=== PATIENT | female | born 1935 | race Caucasian/White ===

== ENCOUNTER → 2016-09-27 | Outpatient (CLI) | payer OTHER ==
[~2016-09-27] MED LIST: ACET325S8 PO; COMBAER INH; DORZ1SOL2 OD; GLUCTAB PO; KCL20 PO; KPHOSO PO; LEVA500T PO; LISI-357 PO; LOVA1TAB47 PO; PARO10TA PO; SODI1 PO
--- NOTE | 2016-10-03 12:21 | RSPPFT ---
DATE OF PROCEDURE: 09/27/16 COMMENTS: VOLUMES DYNAMIC: FVC and FEV1 mildly reduced. STATIC: FRC, RV moderately increased; TLC normal. FLOWS: FEV1% mildly reduced; FEF 25-75 severely reduced. DIFFUSION: Moderately reduced. FLOW VOLUME LOOP: Pattern of variable intrathoracic airways obstruction. IMPRESSION: Moderate obstructive ventilatory defect with reduction in diffusion and significant hyperinflation. There is improvement post-bronchodilator.
== END ==
LOC: HRSP 11:19
PROVIDERS: ATTEND Internal Medicine
DX: J44.9 Chronic obstructive pulmonary disease, unspecified (principal)
CPT/HCPCS: 94620